=== PATIENT | female | born 1985 | race Caucasian/White ===

== ENCOUNTER 2016-09-24 14:42 | Emergency (ER) | payer MEDICAID, OTHER ==
[~2016-09-24] VITALS: Ht 165.1 cm; Wt 54.9 kg
[2016-09-24 14:59] VITALS: BP 105/70
[2016-09-24 15:26] LABS: Basophils # (auto) 0.1 uL; Basophils % (auto) 0.5 % (0.0-2.0); Eosinophils # (auto) 0.1 uL; Eosinophils % (auto) 0.9 % (0.0-7.0); Hematocrit 42.8 % (36.0-46.0); Hemoglobin 14.3 g/dL (12.2-16.2); Lymphocytes # (auto) 1.5 uL; Lymphocytes % (auto) 11.4 % (10.0-50.0); Mean Corpuscular Hgb Conc. 33.4 g/dL (32.0-36.0); Mean Corpuscular Volume 95.9 fL (80.0-100.0); Mean Platelet Volume 8.7 fL (7.4-10.4); Monocytes % (auto) 7.7 % (0.0-12.0); Neutrophils # (auto) 10.3 uL; Neutrophils % (auto) 79.5 % (37.0-80.0); Platelet Count (auto) 286 10^3/uL (140-450); Red Cell Distribution Width 13.4 % (11.6-16.0)
[2016-09-24 15:50] LABS: Albumin 3.8 g/dL (3.4-5.0); Bilirubin, Total 0.6 mg/dL (0.2-1.0); Calcium 9.1 mg/dL (8.5-10.1); Potassium 3.6 mmol/L (3.5-5.1); Total Protein 7.6 g/dL (6.4-8.2)
== END 2016-09-25 00:38 | disposition left against medical advice (07) ==
LOC: ER 14:42
DX: R10.9 Unspecified abdominal pain (principal); Z53.21 Procedure and treatment not carried out due to patient leaving prior to being seen by health care provider
CPT/HCPCS: 36415; 80053; 83690; 85025